=== PATIENT | male | born 1990 | race Caucasian/White ===

== ENCOUNTER 2018-01-02 13:08 | Emergency (ER) | payer MEDICAID, OTHER ==
[2018-01-02] MEDS: ACETAMINOPHEN 500 MG TAB PO (14:25)
[2018-01-02] MEDS: SOD CHLORIDE 0.9% 1,000 ML IV (14:25)
[2018-01-02] MEDS: KETOROLAC 30 MG INJ IV (14:25)
[2018-01-02] MEDS: DEXAMETHASONE 10 MG/ML 1 ML INJ IV (14:25)
[2018-01-02] MEDS: CLINDAMYCIN 600 MG/D5W (PMX) 50 ML IVPB (15:01)
== END 2018-01-02 15:50 | disposition home or self-care (01) ==
LOC: FTE 13:08
DX: J03.90 Acute tonsillitis, unspecified (principal)
CPT/HCPCS: 96374; 96375; 99284-25